=== PATIENT | female | born 1980 | race Caucasian/White ===

== ENCOUNTER → 2016-12-15 | Outpatient (CLI) | payer OTHER ==
--- NOTE | 2016-12-15 12:22 | KCIC ---
PROCEDURE CT temporal bones without contrast. HISTORY Hearing loss, right ear. History of surgery 2010, cholesteatoma with reconstruction. TECHNIQUE Helical CT scanning of both temporal bones was performed. 1 mm reconstructed axial and coronal small [id number] CT images of each temporal bone were generated and reviewed on a computer monitor. COMPARISON CT temporal bone without contrast, [facility], January 24, 2012. FINDINGS Minimal mucosal thickening right sphenoid sinus. No air-fluid level. RIGHT TEMPORAL BONE: There is thickening of the right tympanic membrane, increased from prior study. There is opacity in the external auditory canal adjacent to the tympanic membrane measuring about 10 by 6 millimeters. This finding is new. The right ossicular chain is absent. The scutum is eroded. These findings are unchanged from prior study. The middle ear cavity is clear other than thickening along the tympanic membrane. The vestibulocochlear complex and semicircular canals are morphologically normal in appearance. The internal auditory canal is unremarkable. No osteolytic process is seen. The facial nerve canal is unremarkable. The jugular foramen is unremarkable. LEFT TEMPORAL BONE: The mastoid sinus and aditus ad antrum and epitympanic recess are clear.][The middle ear ossicles are identified and no erosion is seen. The scutum appears normal.][No abnormal thickening of the tympanic membrane is seen. The middle ear cavity is clear. The vestibulocochlear complex and semicircular canals are morphologically normal in appearance. The internal auditory canal is unremarkable.][No osteolytic process is seen. The facial nerve canal is unremarkable.][The jugular foramen is unremarkable. The external auditory canal is open. IMPRESSION 1. There is greater thickening along the right tympanic membrane than on the prior study. There is new opacity just superficial to the tympanic membrane in the external auditory canal. 2. Right ossicular chain and scutum erosion is unchanged. Electronically signed by: Matthew Hay MD (Dec 15, 2016 12:20:59)
== END | disposition home or self-care (01) ==
LOC: KCIC CT 10:08
PROVIDERS: ATTEND Otolaryngology
DX: H91.91 Unspecified hearing loss, right ear (principal)
CPT/HCPCS: 70480

== ENCOUNTER → 2017-05-31 | Outpatient (CLI) | payer OTHER ==
--- NOTE | 2017-06-01 11:10 | RAD ---
DATE: 05/31/2017 EXAM: MAMMO MICHAEL SCREENING BILATERAL HISTORY: Routine screening COMPARISON: Baseline study The breast parenchyma is primarily fatty replaced. Breast parenchyma level density A. FINDINGS: 2-D and 3-D tomosynthesis imaging was performed in CC and MLO projections. There is a small lobulated nodule or nodule cluster in the inferolateral aspect of the left breast, best seen on oblique tomogram #12. It measures approximately 9 x 4 mm. Its margins are smooth. This is most likely an intramammary lymph node. No other breast nodules are seen. No suspicious microcalcifications are present. IMPRESSION: Probably benign tiny left breast nodule as described above. Sonographic evaluation is suggested. BI-RADS CATEGORY: 0 INCOMPLETE: NEEDS ADDITIONAL IMAGING EVALUATION AND/OR PRIOR MAMMOGRAMS FOR COMPARISON. RECOMMENDED FOLLOW-UP: ADD ADDITIONAL IMAGING PQRS compliance statement: Patient information was entered into a reminder system with a target due date for the next mammogram. Mammography is a sensitive method for finding small breast cancers, but it does not detect them all and is not a substitute for careful clinical examination. A negative mammogram does not negate a clinically suspicious finding and should not result in delay in biopsying a clinically suspicious abnormality. "Our facility is accredited by the [employer] Mammography Program."
== END | disposition home or self-care (01) ==
LOC: KCIC MAMMO 10:59
PROVIDERS: ATTEND Obstetrics & Gynecology
DX: Z12.31 Encounter for screening mammogram for malignant neoplasm of breast (principal)
CPT/HCPCS: 77063; G0202; 77067

== ENCOUNTER → 2017-06-12 | Outpatient (CLI) | payer OTHER ==
--- NOTE | 2017-06-12 09:34 | KCIC ---
Left breast ultrasound: Reason for examination: Evaluate for possible nodularity on screening mammogram. Comparison is made to mammographic exam dated 05/31/2017. Left breast ultrasound was performed clinical concern and at the left axilla. There is some very minimal fibrocystic changes. There are no suspicious nodules seen. No abnormal appearing lymph nodes are seen in the axilla. IMPRESSION: No suspicious abnormalities evident sonographically. Recommend routine mammographic follow-up. BI-RADS Category 2: Benign. "Our facility is accredited by the [employer] Mammography Program." This patient's information has been entered into a reminder system for the patient to be notified with the results of her examination and a target date for the next mammogram. Electronically signed by: Francisca Love MD (06/12/2017 9:31 AM) [id number]
== END | disposition home or self-care (01) ==
LOC: KCIC US 08:39
PROVIDERS: ATTEND Obstetrics & Gynecology
DX: R92.8 Other abnormal and inconclusive findings on diagnostic imaging of breast (principal)
CPT/HCPCS: 76641

== ENCOUNTER → 2017-06-27 | Outpatient (CLI) | payer OTHER ==
--- NOTE | 2017-06-27 15:26 | EKG ---
[facility] [address] [place] [address] Test Date: 2017-06-27 Test Time: 15:29:39 Pat Name: SHIRA CARRILLO Department: Room: Gender: F Medical Management Specialist: FAUSTO : 1980 Requested By: KWAKU PORTER Order Number: [id number] Reading MD: Jim Gunter Measurements Intervals [place] Rate: 75 P: 25 OR: 156 QRS: 26 QRSD: 86 T: 14 QT: 394 QTc: 443 Interpretive Statements SINUS RHYTHM Electronically Signed On 06-29-2017 13:15:39 CDT by Jim Gunter
[2017-06-27 15:32] LABS: BASO # 0.1 x10^3/uL (0.0-0.2); BASO % 1 % (0-3); EOS % 3 % (0-3); HEMATOCRIT 36.4 % (36.0-47.0); HEMOGLOBIN 12.4 g/dL (12.0-15.5); LYMPH # 2.6 x10^3/uL (1.0-4.8); LYMPH % 34 % (24-48); MEAN CORPUSCULAR HEMOGLOBIN 31 pg (25-35); MEAN CORPUSCULAR HGB CONC 34 g/dL (31-37); MEAN CORPUSCULAR VOLUME 90 fL (79-100); MONO % 6 % (0-9); NEUT % 56 % (31-73); PLATELET COUNT 273 x10^3/uL (140-400); RED BLOOD COUNT 4.05 x10^6/uL (3.50-5.40); RED CELL DISTRIBUTION WIDTH 13.4 % (11.5-14.5); WHITE BLOOD COUNT 7.7 x10^3/uL (4.0-11.0)
[2017-06-27 15:39] LABS: BILIRUBIN,URINE NEGATIVE (NEG); GLUCOSE,URINE NEGATIVE (NEG); NITRITE,URINE NEGATIVE (NEG); PH,URINE 7.5; PROTEIN,URINE NEGATIVE (NEG-TRACE); UROBILINOGEN,URINE 0.2 mg/dL (0.2 mg/dL)
[2017-06-27 15:46] LABS: BACTERIA,URINE MODERATE /HPF (0-FEW); RBC,URINE 0 /HPF (0-2); SQUAMOUS EPITHELIAL CELL,UR MANY /LPF; WBC,URINE OCC /HPF (0-4)
[2017-06-27 16:01] LABS: ALBUMIN 3.6 g/dL (3.4-5.0); CALCIUM 8.4 mg/dL (8.5-10.1); CREATININE 0.6 mg/dL (0.6-1.0); GFR 112.5; POTASSIUM 3.8 mmol/L (3.5-5.1); TOTAL BILIRUBIN 0.1 mg/dL (0.2-1.0); TOTAL PROTEIN 7.1 g/dL (6.4-8.2)
--- NOTE | 2017-06-27 16:09 | RAD ---
AP and lateral views of the chest 06/27/2017 5:23 PM Indication: Preoperative Comparison: None Findings: There is no focal consolidation or infiltrate identified. There is no effusion or pneumothorax. The cardiomediastinal silhouette and pulmonary vasculature are within normal limits. No osseous abnormality is identified. Impression: No evidence of acute cardiopulmonary process.
== END | disposition home or self-care (01) ==
LOC: SURGPAT 15:03
PROVIDERS: ATTEND Obstetrics & Gynecology
DX: Z01.818 Encounter for other preprocedural examination (principal); R07.9 Chest pain, unspecified
CPT/HCPCS: 36415; 71020; 80053; 81001; 85025; 87086; 93005

== ENCOUNTER 2017-07-06 05:58 | Observation (INO) | payer OTHER ==
[~2017-07-06] VITALS: Ht 152.4 cm; Wt 111.1 kg
[2017-07-06] VITALS (10 sets, daily range): BP systolic 84–108; BP diastolic 50–68
[2017-07-06 06:24] LABS: NEG OBC UR NEG; POS OBC UR POS
[2017-07-06] MEDS ORDERED: DEXAMETHASONE SOD PHOS 20 MG/5 ML VIAL. ONE (06:56)
[2017-07-06] MEDS ORDERED: FAMOTIDINE 20 MG/2 ML VIAL ONE (06:56)
[2017-07-06] MEDS ORDERED: LIDOCAINE 2% PF Vial for OR 5 ML VIAL. ONE (06:56)
[2017-07-06] MEDS ORDERED: ONDANSETRON PF 4 MG/2 ML VIAL. ONE (06:56)
[2017-07-06] MEDS ORDERED: PROPOFOL 20 ML IV ONE (06:56)
[2017-07-06] MEDS ORDERED: ESTROGENS, CONJ VAGINAL CREAM 30GM TUBE. ONE (06:58)
[2017-07-06] MEDS ORDERED: BUPIVACAINE-EPI 0.25%-1:200000 MPF 30 ML VIAL. ONE (06:58)
[2017-07-06] MEDS ORDERED: fentaNYL PF VIAL 100 MCG/2 ML VIAL ONE ×4 (06:59→09:43)
[2017-07-06] MEDS ORDERED: ROCURONIUM 100 MG/10 ML VIAL. ONE (06:59)
[2017-07-06] MEDS ORDERED: SUCCINYLCHOLINE 200 MG/10 ML VIAL. ONE (06:59)
[2017-07-06] MEDS ORDERED: MIDAZOLAM HCL/PF 2 MG/2 ML VIAL. ONE (06:59)
[2017-07-06] MEDS ORDERED: PROCHLORPERAZINE 10 MG/2 ML VIAL. IV PRN (07:00)
[2017-07-06] MEDS ORDERED: IV RINGERS,LACTATED 1000ML 1,000 ML IV SCH (07:00)
[2017-07-06] MEDS ORDERED: fentaNYL PF VIAL 100 MCG/2 ML VIAL IV PRN (07:00)
[2017-07-06] MEDS ORDERED: LIDOCAINE 1% 1 ML SYRINGE. ID PRN (07:00)
[2017-07-06] MEDS ORDERED: ONDANSETRON PF 4 MG/2 ML VIAL. IV PRN ×2 (07:00→09:00)
[2017-07-06] MEDS ORDERED: KETOROLAC 60 MG/2 ML INJ FOR OR. ONE (07:47)
[2017-07-06] MEDS ORDERED: GLYCOPYRROLATE 1 MG/5 ML VIAL. ONE (08:40)
[2017-07-06] MEDS ORDERED: NEOSTIGMINE METHYLSULFATE 5 MG/5 ML SYRINGE. ONE (08:40)
[2017-07-06] MEDS ORDERED: DESFLURANE 61 TO 120 MINUTES IH ONE (08:52)
[2017-07-06] MEDS ORDERED: LACTULOSE 20 GM/30 ML SOLUTION. PO PRN (09:00)
[2017-07-06] MEDS ORDERED: MAG HYDROX/ALUMINUM HYD/SIMETH 30 ML ORAL.SUSP PO PRN (09:00)
[2017-07-06] MEDS ORDERED: 0.9 % SODIUM CHLORIDE 10 ML DISP.SYRIN. IV PRN (09:00)
[2017-07-06] MEDS ORDERED: oxyCODONE/APAP 5/325 1 TAB TABLET PO PRN (09:00)
[2017-07-06] MEDS ORDERED: diphenhydrAMINE 50 MG/ML VIAL IV PRN (09:00)
[2017-07-06] MEDS ORDERED: ZOLPIDEM 5 MG TABLET. PO PRN (09:00)
[2017-07-06] MEDS ORDERED: MAGNESIUM HYDROXIDE 2,400 MG/30 ML ORAL.SUSP. PO PRN (09:00)
[2017-07-06] MEDS ORDERED: CALCIUM CARBONATE 500 MG TAB.CHEW PO PRN (09:00)
[2017-07-06] MEDS ORDERED: NALOXONE 0.4 MG/ML VIAL. IV PRN (09:00)
[2017-07-06] MEDS ORDERED: diphenhydrAMINE HCL 25 MG CAPSULE PO PRN (09:00)
--- NOTE | 2017-07-06 09:11 | PDOC ---
BRIEF OPERATIVE NOTE Date: Jul 06, 2017 Pre-Op Diagnosis enlarged uterus, menorrhagia, postcoital vaginal bleeding Post-Op Diagnosis same Procedure Performed LAVH/Bilateral salpingectomy Surgeon Dr. Afshan Porter Assistant Professor Of Forestry Dr. Alexandra Latif Anesthesiologist Stephane Anesthesia Type: General Blood Loss 25cc IV Fluid 1L Urine Output 75cc clear Specimens Obtained cervix, uterus, bilateral tubes Findings enlarged uterus, normal bilateral tubes and ovaries Complications none OPerative Note [id number] AFSHAN PORTER MD Jul 06, 2017 09:11
[2017-07-06] MEDS: fentaNYL PF VIAL 100 MCG/2 ML VIAL IV PRN ×4 (09:28→10:21)
[2017-07-06] MEDS: MORPHINE SULFATE 2 MG/ML DISP.SYRIN. IV PRN ×5 (09:34→19:48)
[2017-07-06] MEDS ORDERED: HYDROmorphone 2 MG/ML VIAL ONE (09:43)
[2017-07-06] MEDS: HYDROmorphone 2 MG/ML VIAL IV PRN ×2 (09:45→09:56)
[2017-07-06] MEDS ORDERED: PROCHLORPERAZINE 10 MG/2 ML VIAL. ONE (09:48)
--- NOTE | 2017-07-06 10:46 | OP ---
DATE OF SURGERY: 07/06/2017 PREOPERATIVE DIAGNOSES: An enlarged uterus, menorrhagia and postcoital vaginal bleeding. POSTOPERATIVE DIAGNOSES: An enlarged uterus, menorrhagia and postcoital vaginal bleeding. PROCEDURE: Laparoscopic assisted vaginal hysterectomy, bilateral salpingectomy. SURGEONS: Kwaku Loyd MD. Alexandra Latif MD. ANESTHESIOLOGIST: . ANESTHESIA TYPE: General. ESTIMATED BLOOD LOSS: 25 mL. URINE OUTPUT: 75 mL clear via Padilla catheter. FLUIDS: 1 liter of crystalloid. SPECIMEN OBTAINED: Cervix, uterus, bilateral tubes. FINDINGS: Enlarged uterus, normal bilateral tubes and ovaries. No significant pelvic adhesive disease. COMPLICATIONS: None. DESCRIPTION OF THE PROCEDURE: This patient was taken to the operating room where general anesthesia was placed. The patient was placed in dorsal lithotomy position in Galo stirrups. The patient's abdomen and vagina were prepped and draped in the normal sterile fashion. Iodine was avoided with her SHELLFISH ALLERGY, so we used Dial soap in the vagina. A Padilla catheter was inserted under sterile technique. At this point, after a time-out was performed, a bivalve speculum was placed in the patient's vagina. A single-tooth tenaculum was used to grasp the anterior lip of the cervix. A 10 mL of 0.25% Marcaine with epinephrine was used to circumferentially inject around the cervix for both hemodissection and hemostatic purposes later. The Valtchev uterine manipulator was placed through the endocervical os, locked on the single tooth tenaculum and the bivalve speculum was then removed. Top gloves were discarded and changed. Attention was turned to the abdomen where a small infraumbilical skin incision was made over the previous existing scar, carried down to the fascia with a curved Delphine clamp. The 5-mm Visiport was used to directly enter the abdominal cavity. Opening patient pressure was 5 mmHg. At this point, carbon dioxide gas was used to appropriately insufflate the abdominal cavity to maintain a pressure of 15 mmHg. The patient was placed in Trendelenburg position. Right and left 5-mm atraumatic Ethicon ports were placed under direct visualization without difficulty after transilluminating the abdomen making an incision clear of any vessels and coming into the abdomen under direct visualization. The left round ligament was identified and cauterized and cut with the LigaSure Advance, creating a window in the mesosalpinx, going down and further making the bladder flap sharply with the monopolar tip, elevating the left tube and ovary. Ovary was normal, so crossing above the ovary below the tube in the mesosalpinx, taking the tube, but leaving the ovary per patient request and then crossing the left uterine ovarian pedicle. This was then done exactly the same on the right, first starting at the right round ligament, cauterizing and cutting it, going down and further meeting that bladder flap anteriorly, elevating the right tube and ovary, again the ovary was normal, going above the ovary, below the tube in the mesosalpinx, taking the tube, leaving the ovary, cauterizing and cutting and then crossing the right ovarian pedicle leaving the ovary as well. The uterine vessels were obtained on both sides. Once this was done, crossing contralaterally and staying inside that uterine vessel pedicle, hugging the cervix and staying vertical, going through the cardinal and broad ligaments down to the level of the uterosacrals, cauterizing and cutting with the LigaSure Advance all the way. The uterus was blanched, it was free of any adhesions. It was completely mobile. All instruments were removed from the abdomen and attention was then turned vaginally. The Valtchev and single tooth were removed. The weighted speculum was placed in the patient's vagina and Thyroid Nell clamps were placed on the anterior and posterior lips of the cervix respectively. A scalpel was used to make a circumferential incision in the cervix. An open Ray-Li 4 x 4 was used to gently push up the anterior bladder peritoneum and the anterior cul-de-sac was sharply and bluntly entered, first with the cuts and then pushing the Ray-Li up. Once this was done, the Ray-Li was actually taken out and the curved Craig was placed in. The cervix was elevated and the posterior cul-de-sac was sharply entered with Zuniga scissors. A #0 Vicryl stitch was used to secure the posterior peritoneum to the vaginal cuff here. It was extended. The short weighted speculum was removed and it was tagged with a curved Delphine clamp and the needle was cut and passed off. The short weighted speculum was removed and replaced with a long weighted Niesha speculum at this point. Curved Elijah clamps x 2 were placed on the patient's left uterosacral ligament. They were doubly clamped with curved Heaneys, cut with Zuniga scissors and suture ligated x 2 with #0 Vicryl. The second one was taken through the vaginal cuff securing the uterosacral ligaments to the vaginal cuff. The needle was cut and passed off and tagged with a straight Delphine clamp. This was done exactly the same on the patient's right side, double clamping the uterosacrals with curved Heaneys, cutting with Zuniga scissors and suture ligating x 2 with #0 Vicryl, again taking the second one through the vaginal cuff, securing uterosacral to the vaginal cuff and tagging it with a straight Delphine clamp. Once this was done, a right angle clamp was taken around the remaining pedicle on the left side, the vaginal LigaSure Max was used to cauterize this and it was cut with Zuniga scissors. The same thing was done on the right side, taking it around the remaining pedicle, cauterizing it and then the uterus was then freed. Uterus, cervix, bilateral tubes were delivered in total and passed off for permanent pathology. The long weighted speculum was removed and replaced with a short weighted speculum. Sponge stick was used to examine all pedicles. A long Allis was used to grasp the anterior bladder peritoneum. Once hemostasis was assured, a 2-0 Vicryl stitch was taken through the anterior bladder peritoneum, left uterosacral ligament, posterior peritoneum and the right uterosacral ligament, thus closing the peritoneum in a pursestring like fashion. Once this was done, the right and left uterosacral tags were clipped and then the cuff was closed in an anterior to posterior running locked fashion with a full length 2-0 Vicryl and taken down to that posterior cuff tag and tied to it. A sponge stick was used to examine the cuff, it was completely hemostatic and dry. So, at this point, all gloves were discarded and changed and attention was turned back vaginally for a second look from above. It was completely hemostatic. The right and left pericolic gutters were cleared. The right upper quadrant was clear. Copious irrigation was done to make sure there was hemostasis. Tisseel was placed over all the cuffs with excellent results. The gas was released to make sure it was okay. I did move the camera to the left lower quadrant port and looked up at the umbilical port just to make sure because it kind of looked fatty, she had fatty tissue on the underneath surface, a peritoneal surface of her anterior abdominal wall all over, so we looked enough all that was too, there was no omentum, no adhesions, it was just some fatty tissue right in front of the umbilical port, but it was completely free and clear, so we had already looked at that. We did release gas to make sure everything stayed hemostatic in the cuff and watched it. Once it did, the right and left lower quadrant ports were taken out under direct visualization and these also were hemostatic and gas was released from the umbilical port. All three port sites were closed with 4-0 nylon at the level of the skin and injected with a total of 10 mL of local. KWAKU LOYD MD DR: POLI/juani JOB#: [id number] / [id number]
[2017-07-06] MEDS: HYDROcodone/APAP 5/325MG 1 TAB TABLET PO PRN (16:23)
[2017-07-06] MEDS: SIMETHICONE 80 MG TAB.CHEW PO PRN (19:45)
[2017-07-07] MEDS: HYDROcodone/APAP 5/325MG 1 TAB TABLET PO PRN ×2 (01:04→07:46)
[2017-07-07] MEDS: MORPHINE SULFATE 2 MG/ML DISP.SYRIN. IV PRN (04:08)
[2017-07-07 05:30] VITALS: BP 116/57
[2017-07-07 06:35] LABS: CALCIUM 8.8 mg/dL (8.5-10.1); CREATININE 0.7 mg/dL (0.6-1.0); GFR 94.2; POTASSIUM 3.9 mmol/L (3.5-5.1)
[2017-07-07] MEDS: SIMETHICONE 80 MG TAB.CHEW PO PRN (07:46)
--- NOTE | 2017-07-07 08:57 | PDOC ---
SURGICAL PROGRESS NOTE Subjective Doing ok; has shoulder and gassy pains. Tolerating regular diet, ambulating ok and voided several times without the catheter. Vital Signs Vital Signs Date Time Temp Pulse Resp B/P (MAP) Pulse Ox O2 Delivery O2 Flow Rate FiO2 07/07/17 07:46 18 Room Air 07/07/17 05:30 98.0 70 116/57 (76) 98.0 07/06/17 15:20 97 07/06/17 10:55 2.0 PATIENT HAS A OLIVO: No General: Alert, Oriented X3, Cooperative, mild distress HEENT: Atraumatic Heart: Regular rate Abdomen: Soft, No tenderness, Other (all 3 port sites c/d/i) Extremities: No clubbing, No cyanosis, No edema Skin: No rashes, No breakdown Neuro: Normal speech Psych/Mental Status: Mental status NL, Mood NL Labs Laboratory Tests Test 07/06/17 06:22 07/07/17 05:45 Urine Test Negative (NEG) Hematocrit 37.4 % (36.0-47.0) Sodium Level 138 mmol/L (136-145) Potassium Level 3.9 mmol/L (3.5-5.1) Chloride Level 103 mmol/L (98-107) Carbon Dioxide Level 28 mmol/L (21-32) Anion Gap 7 (6-14) Blood Urea Nitrogen 7 mg/dL (7-20) Creatinine 0.7 mg/dL (0.6-1.0) Estimated GFR (Cockcroft-Gault) 94.2 Glucose Level 119 mg/dL (70-99) Calcium Level 8.8 mg/dL (8.5-10.1) Laboratory Tests Test 07/07/17 05:45 Hematocrit 37.4 % (36.0-47.0) Sodium Level 138 mmol/L (136-145) Potassium Level 3.9 mmol/L (3.5-5.1) Chloride Level 103 mmol/L (98-107) Carbon Dioxide Level 28 mmol/L (21-32) Anion Gap 7 (6-14) Blood Urea Nitrogen 7 mg/dL (7-20) Creatinine 0.7 mg/dL (0.6-1.0) Estimated GFR (Cockcroft-Gault) 94.2 Glucose Level 119 mg/dL (70-99) Calcium Level 8.8 mg/dL (8.5-10.1) I have reviewed the following labs, vitals, nursing Cardiovascular: No pertinent hx Pulmonary: No pertinent hx GI: No pertinent hx Assessment/Plan POD#1 s/p LAVH/bilateral salpingectomy Routine po care d/c to home NPV x 6 weeks Light/limited x [address] while on narcotic pain pills keep scheduled follow up ok to take ibuprofen or aleve as well as narcotic pain pills written Call or return sooner if have any other questions or concerns not limited to but including pain unrelieved with pain meds, increased or unexplained vaginal bleeding or T>100.4 Problems: KWAKU PORTER MD Jul 07, 2017 08:57
--- NOTE | 2017-07-07 08:59 | PDOC3 ---
Discharge Summary Visit Information Date of Admission: Jul 06, 2017 Date of Discharge: Jul 07, 2017 Admitting Diagnosis Comment: menorrhagia Brief Hospital Course Allergies Allergies Coded Allergies Type Severity Reaction Last Updated Verified shellfish derived Allergy Intermediate 07/06/17 Yes povidone-iodine Adverse Reaction Mild 07/06/17 Yes soap Adverse Reaction Mild 07/06/17 Yes Vital Signs Vital Signs Date Time Temp Pulse Resp B/P (MAP) Pulse Ox O2 Delivery O2 Flow Rate FiO2 07/07/17 07:46 18 Room Air 07/07/17 05:30 98.0 70 116/57 (76) 98.0 07/06/17 15:20 97 07/06/17 10:55 2.0 Lab Results Laboratory Tests Test 07/06/17 06:22 07/07/17 05:45 Urine Test Negative (NEG) Hematocrit 37.4 % (36.0-47.0) Sodium Level 138 mmol/L (136-145) Potassium Level 3.9 mmol/L (3.5-5.1) Chloride Level 103 mmol/L (98-107) Carbon Dioxide Level 28 mmol/L (21-32) Anion Gap 7 (6-14) Blood Urea Nitrogen 7 mg/dL (7-20) Creatinine 0.7 mg/dL (0.6-1.0) Estimated GFR (Cockcroft-Gault) 94.2 Glucose Level 119 mg/dL (70-99) Calcium Level 8.8 mg/dL (8.5-10.1) Laboratory Tests Test 07/07/17 05:45 Hematocrit 37.4 % (36.0-47.0) Sodium Level 138 mmol/L (136-145) Potassium Level 3.9 mmol/L (3.5-5.1) Chloride Level 103 mmol/L (98-107) Carbon Dioxide Level 28 mmol/L (21-32) Anion Gap 7 (6-14) Blood Urea Nitrogen 7 mg/dL (7-20) Creatinine 0.7 mg/dL (0.6-1.0) Estimated GFR (Cockcroft-Gault) 94.2 Glucose Level 119 mg/dL (70-99) Calcium Level 8.8 mg/dL (8.5-10.1) Brief Hospital Course Ms. Shine is a 37 old female who presented with enlarged uterus, menorrhagia and postcoital vaginal bleeding. She underwent an LAVH/bilateral salpingectomy without complications. She has had an unremarkable postoperative course. She is tolerating regular diet, ambulating and voiding without catheter. She will be discharged later today home. Discharge Information Condition at Discharge: Stable Follow Up: Weeks Disposition/Orders: D/C to Home Miscellaneous Medications Info (No Known Medications Prior To Admisstion), 1 EACH , (Reported) Patient Instructions Patient Instructions POD#1 s/p LAVH/bilateral salpingectomy Routine po care d/c to home NPV x 6 weeks Light/limited x [address] while on narcotic pain pills keep scheduled follow up ok to take ibuprofen or aleve as well as narcotic pain pills written Call or return sooner if have any other questions or concerns not limited to but including pain unrelieved with pain meds, increased or unexplained vaginal bleeding or T>100.4 KWAKU PORTER MD Jul 07, 2017 08:59
[2017-07-07] MEDS ORDERED: KETOROLAC TROMETHAMINE 30 MG/ML INJ. IV PRN (09:00)
[2017-07-07 11:41] VITALS: BP 116/72
--- NOTE | 2017-07-07 15:21 | PATHOLOGY ---
PATHOLOGY REPORT * * * * * * * * FINAL DIAGNOSIS: Uterus and bilateral fallopian tubes, laparoscopic assisted vaginal hysterectomy with bilateral salpingectomy: - Adenomyosis, uterine corpus, subbasal, with myometrial hypertrophy (uterine weight 213 grams). - Chronic cervicitis with focal squamous metaplasia. - Late secretory endometrium. - Status post bilateral tubal ligation. - Paratubal cysts, left fallopian tube. COMMENT: There is no atypia or evidence of malignancy. REPORT ELECTRONICALLY SIGNED BY: Carlos Johnson M.D. DATE/TIME: 07/07/2017 15:20 * * * * * * * * GROSS PATHOLOGY: The specimen is received in formalin labeled "Shira Shine, uterus, cervix and bilateral fallopian tubes". Received is a 12.2 x 8.8 x 5.8 cm 213g uterus with attached cervix. The uterine serosa is pink lopez, smooth and glistening. The 1.5 cm cervical os is surrounded by pink lopez ectocervical mucosa. The uterus is oriented using the peritoneal reflection and the anterior paracervical margin is inked black. The uterus is opened laterally to reveal a yellow lopez, corrugated endocervical canal measuring 3.7 cm in length. The endometrial cavity is roughly triangular in shape measuring 5.5 cm in length by 3.8 cm in width. The endometrium is yellow lopez and velvety in appearance and measures 0.6 in thickness. Serial sectioning reveals a yellow lopez, trabeculated, focally glandular appearing myometrium measuring 1.5 cm in thickness. The right fimbriated fallopian tube has been previously ligated and measures 5.5 cm in length by 0.4 cm in diameter. The serosal surface is inked black. Sectioning reveals a lopez, pinpoint, unremarkable lumen. The left fimbriated fallopian tube has also been previously ligated and measures 6.4 cm in length by 0.8 cm in diameter. There are two large, 1.3 and 1.5 cm paratubal cysts. Sectioning reveals a lopez, pinpoint, unremarkable lumen. Hand Folder sections are submitted as follows: A1- Anterior and posterior cervix A2-A3- Anterior endomyometrium A4-A5- Posterior endomyometrium A6- Hand Folder sections from bilateral fallopian tubes, the right having been differentially inked (JPM; 07/06/17) INITIAL CPT CODE(S): A; 53112 Professional services performed by [facility] [address] [place] [address] Technical services performed by [facility] at [address] [place] [address], [address], [place] [address]. SPECIMEN(S) RECEIVED: A.Uterus, cervix, bilateral fallopian tubes CLINICAL HISTORY: Enlarged uterus, metrorrhagia, menorrhea PATIENT: SHIRA SHINE /AGE: 8 1980 (Age: 37) PATIENT #: [id number] ALT CASE #: SPECIMEN COLLECTION DATE: 07/06/2017 SPECIMEN RECEIVED DATE: 07/06/2017 [facility] - [address] [place] [address] - PHONE: [phone] * * * END OF REPORT * * *
== END 2017-07-07 11:49 | disposition home or self-care (01) ==
LOC: SURG 05:58 → 3 NORTH 10:25
PROVIDERS: ADMIT Obstetrics & Gynecology; ATTEND Obstetrics & Gynecology
DX: N85.2 Hypertrophy of uterus (principal); N92.0 Excessive and frequent menstruation with regular cycle; N93.0 Postcoital and contact bleeding; Z91.013 Allergy to seafood
CPT/HCPCS: 36415; 58552; 80048; 81025; 85014; 86850; 86900; 86901; 96374; 96375; 96376; C1769; G0378; G0379; J0330; J0690; J0780; J1100; J1170; J1885; J2250; J2270; J2704; J2710; J3010; J3490; J7030; J7120; S0028; 88307; J2405; J2001

== ENCOUNTER → 2019-03-13 | Outpatient (CLI) | payer OTHER ==
--- NOTE | 2019-03-13 16:17 | KCIC ---
History: Screening. Family history of breast cancer of a paternal uncle. Bilateral digital CC and MLO views were obtained with mammography and tomosynthesis. Computer aided detection was utilized with iCAD Second Look 7.2-H. Previous: May 31, 2017. There are scattered fibroglandular densities (Level 2 density).There are no suspicious masses, suspicious microcalcifications or areas of architectural distortion. Left outer breast intramammary lymph node is stable. IMPRESSION: Negative mammogram. Patient information was entered into the [employer] reminder system with a target due date for the next screening mammogram. Routine annual screening mammogram in one year advised. BI-RADS Category 1: Negative. If your mammogram demonstrates that you have dense breast tissue, which could hide abnormalities, and if you have other risk factors for breast cancer that have been identified, you might benefit from supplemental screening tests that may be suggested by your ordering physician. Dense breast tissue, in and of itself, is a relatively common condition. This information is not provided to cause undue concern, but rather to raise your awareness and to promote discussion with your physician regarding the presence of other risk factors, in addition to dense breast tissue. A report of your mammography results will be sent to you and your physician. You should contact your physician if you have any questions or concerns regarding this report. A mammogram does not have 100% sensitivity and therefore a negative imaging study should not delay further work up of a suspicious abnormality. "Our facility is accredited by the [employer] Mammography Program." Electronically signed by: Fco Lopez MD (03/13/2019 4:13 PM) [id number]
== END | disposition home or self-care (01) ==
LOC: KCIC MAMMO 08:36
PROVIDERS: ATTEND Obstetrics & Gynecology
DX: Z12.31 Encounter for screening mammogram for malignant neoplasm of breast (principal); Z80.3 Family history of malignant neoplasm of breast
CPT/HCPCS: 77063; 77067